=== PATIENT | male | born 1960 | race Caucasian/White ===

== ENCOUNTER 2023-12-23 17:43 | Emergency (ER) | payer BC ==
[~2023-12-23] VITALS: Ht 177.8 cm; Wt 104.5 kg
[2023-12-23 17:53] VITALS: TEMP 98.9
[2023-12-23] MEDS ORDERED: NS 1,000 ML IV ONE (18:15)
[2023-12-23] MEDS ORDERED: Ketorolac 15 MG/ML VIAL IV ONE (19:30)
[2023-12-23 19:40] LABS: BASO % 0.3 % (0.0-2.0); EOS % 0.1 % (0.0-4.0); GRAN # 8.1 K/mm3 (1.4-6.5); GRAN % 76.5 % (42.2-75.2); HEMATOCRIT 43.6 % (42.0-52.0); HEMOGLOBIN 15.4 g/dl (13.5-18.0); LYMPH # 1.4 K/mm3 (1.2-3.4); LYMPH % 13.5 % (20.0-51.0); MEAN CELL VOLUME 93 fl (80.0-100.0); MEAN CORPUSCULAR HEMOGLOBIN 33 pg (27-31); MEAN CORPUSCULAR HGB CONC 35 g/dl (33.0-37.0); MONO % 9.3 % (1.7-9.3); PLATELET COUNT 172 K/mm3 (130-400); REDCELL DISTRIBUTION WIDTH-CV 12.2 % (11.5-14.5)
[2023-12-23] MEDS ORDERED: Oseltamivir 75 MG CAP PO ONE (20:00)
[2023-12-23 20:01] LABS: ALANINE AMINOTRANSFERASE 42 U/L (0-55); ALBUMIN 4.2 g/dL (3.4-4.8); ALKALINE PHOSPHATASE 40 U/L (40-150); ANION GAP 12 mmol/L (7-16); AST,SGOT 41 U/L (5-34); BILIRUBIN,TOTAL 0.4 mg/dL (0.2-1.2); BLOOD UREA NITROGEN 15 mg/dL (8-26); CALCIUM 9.3 mg/dL (8.4-10.2); CHLORIDE 103 mEq/L (98-107); CREATININE, serum 1.13 mg/dL (0.72-1.25); GLUCOSE 105 mg/dL (70-99); POTASSIUM 3.4 mEq/L (3.5-4.5); SODIUM 138 mEq/L (136-145); TOTAL PROTEIN 7.4 g/dl (6.2-8.1)
[2023-12-23] MEDS ORDERED: TAMIFLU 75MG75 MG PO (20:09)
[2023-12-23 20:14] LABS: TROPONIN-I < 0.010 ng/mL (0.00-0.033)
[2023-12-23 20:39] VITALS: BP 145/81; PULSE 80
== END 2023-12-23 20:37 | disposition home or self-care (01) ==
LOC: COL.ER 17:43
PROVIDERS: Physician Assistant
DX: J10.1 Influenza due to other identified influenza virus with other respiratory manifestations (principal)
CPT/HCPCS: J1885; J7030